=== PATIENT | male | born 1965 | race Caucasian/White ===

== ENCOUNTER 2022-08-29 11:36 | Outpatient (REF) | payer MEDICARE, MEDICAID, SELFPAY ==
--- NOTE | ~2022-08-29 | XR_ITS ---
EXAMINATION: XR HIP, LEFT CLINICAL INFORMATION: Pain in left hip COMPARISON: None TECHNIQUE: AP view the pelvis and AP and frog leg lateral views of the left hip FINDINGS: Bones are intact. No fracture. The sacroiliac joints and right hip joint are within normal limits. There is severe narrowing of the superior-lateral aspect of the cartilage space of the left hip with subchondral sclerosis of the adjacent articular surfaces. Small calcification in the pelvis likely represents a phlebolith. XR/XR hip LT w PEL1V IMPRESSION: Severe osteoarthritis of the left hip.
--- NOTE | ~2022-08-29 | XR_ITS ---
EXAMINATION: XR LUMBOSACRAL SPINE WITH OBLIQUES CLINICAL INFORMATION: Radiculopathy, lumbar region COMPARISON: Same-day radiographs of the left hip TECHNIQUE: AP, both oblique, and lateral views of the lumbar spine. Lateral view of the lumbosacral junction. FINDINGS: There is mild to moderate curve of the lumbar spine, convex right. This limits evaluation of disc space height. There are 5 nonrib-bearing lumbar-type vertebral bodies. The height of the lumbar vertebral bodies is well-maintained. There is straightening of the usual lumbar lordosis which can be seen with muscle spasm. There is probably mild disc space narrowing at L3-L4 and L4-L5. There is no spondylolisthesis or spondylolysis. Small Schmorl's nodes are seen in the superior endplate of L2 and L3. There is mild degenerative facet joint disease L5-S1. XR/XR lumbar spine 6V w bending IMPRESSION: 1. Muscle spasm. 2. Mild to moderate curve of the lumbar spine, convex right. 3. Mild degenerative disc disease at L3-L4 and L4-L5
== END 2022-08-29 11:37 | disposition home or self-care (01) ==
LOC: HO.XRAY 11:36
PROVIDERS: Visit Provider Nurse Practitioner Family
DX: M47.816 Spondylosis without myelopathy or radiculopathy, lumbar region (principal); M51.36 Other intervertebral disc degeneration, lumbar region; M54.16 Radiculopathy, lumbar region; M25.552 Pain in left hip
CPT/HCPCS: 72114; 73502; 99202

== ENCOUNTER → 2022-09-19 10:43 | Outpatient (BNVA) | payer MEDICARE, MEDICAID, SELFPAY | PROVIDERS: PCP Internal Medicine; Visit Provider Orthopaedic Surgery | DX: M16.12 Unilateral primary osteoarthritis, left hip (principal) | CPT/HCPCS: 99202 ==

== ENCOUNTER 2022-10-28 06:20 | Outpatient (REF) | payer MEDICARE, MEDICAID, SELFPAY ==
--- NOTE | ~2022-10-28 | FL_ITS ---
EXAMINATION: XR FLUOROSCOPY WITH IMAGES CLINICAL INFORMATION: M16.12 - Unilateral primary osteoarthritis, left hip COMPARISON: Radiographs left hand TECHNIQUE: Fluoroscopy Supervised By: Dr. Alberto Ceja. Fluoroscopy Time: 0.1 minutes. Cumulative Dose: 7.79 mGy. DAP: 2.12 Gycm2. Images: 1. FINDINGS: There is a spinal needle with tip at the superior lateral left hip joint. Some trace intracapsular contrast is suggested. No visible vascular communication. There are osteoarthritic changes left hip again seen similar to prior imaging. FL/FL guidance in treatment room IMPRESSION: Fluoroscopy for pain management procedure.
== END 2022-10-28 06:21 | disposition home or self-care (01) ==
LOC: CF 06:20
PROVIDERS: Visit Provider Anesthesiology
DX: M16.12 Unilateral primary osteoarthritis, left hip (principal)
CPT/HCPCS: 20610; J3301